=== PATIENT | female | born 1995 | race Caucasian/White ===

== ENCOUNTER 2018-06-11 19:01 | Emergency (ER) | payer MEDICAID, SELFPAY ==
[2018-06-11 19:17] VITALS: BP 113/71; PULSE 128; RESP 18; TEMP 37.3; O2SAT 96
--- NOTE | 2018-06-11 19:54 | W.ED.GENAD ---
Discharge Plan Disposition Patient Disposition: HOME Condition: Improving Discharge Details Chief Complaint: Abd Prob Clinical Impression: Gastroenteritis Primary Care Provider: Armando Hui ED Provider: Scott Vyas Home Meds and New Rx's Prescriptions: New ondansetron HCl [Zofran] 4 mg tablet 4 mg PO QID PRN (Reason: nausea and vomiting) Qty: 10 RF: 0 Continue albuterol sulfate 8.5 GM HFA aerosol inhaler 90 mcg Inhalation qid prn RF: 0 paragard iud RF: 0 acetaminophen [Tylenol] 325 MG tablet 650 mg PO Q4H PRN PRNRF: 0 Discharge Instructions Instructions: Gastroenteritis (ED) Additional Instructions: Home to rest today. Small, frequent sips of fluids to maintain hydration. May use Zofran, as prescribed, as needed for nausea. Return to the emergency department for any acute concerns or if you have persistent fever, the development of abdominal pain, persistent vomiting. Follow-up with regular doctor if not improving in 3 days time Medical Decision Making 22-year-old female presents with hours of nausea and vomiting associated with generalized weakness. She does not have a fever. She is tachycardic. She is otherwise pleasant. Do not feel that there is significant evidence of peritonitis on my exam. Differential diagnosis includes viral gastroenteritis. IV was placed, labs obtained, patient given 2 L of fluid and and antiemetic. Observe revealed borderline low potassium, otherwise reassuring. In the emergency department patient did spike a fever that responded to antipyretics. Her pulse corrected following administration of fluids and she subsequent felt improved and tolerated liquids by mouth. Discussed with her that this does not appear to be developing peritonitis but she will return for the development of abdominal pain. She is to be discharged home with Zofran for as needed use. She will continue oral hydration. She will return for any acute concern Lab Data Lab results reviewed: Yes I reviewed the patient's lab results. Laboratory Tests Range/Units 06/11/18 06/11/18 06/11/18 20:15 20:15 21:56 WBC (4.4-10.8) k/cumm 4.36 L RBC (4.00-5.20) m/cumm 4.38 Hgb (12.0-15.5) g/dL 13.4 Hct (36.0-46.0) % 39.6 MCV (80-95) fL 90.4 MCH (27.0-33.0) pg 30.6 MCHC (32.0-36.0) g/dL 33.8 RDW (11.7-14.6) % 13.1 Plt Count (130-400) x1000/uL 146 MPV (8.0-11.0) fL 10.2 Immature Gran % 0.2 Neutrophils % 77.0 Lymphocytes % 15.1 Monocytes % 7.3 Eosinophils % 0.2 Basophils % 0.2 Absolute Neutrophils (1.2-6.7) k/cumm 3.36 Absolute Lymphocytes (1.2-3.4) k/cumm 0.66 L Absolute Monocytes (0.11-0.7) k/cumm 0.32 Absolute Eosinophils (0.0-0.7) k/cumm 0.01 Absolute Basophils (0.0-0.2) k/cumm 0.01 Sodium (136-145) mmol/L 137 Potassium (3.5-5.1) mmol/L 3.3 L Chloride (98-107) mmol/L 102 Carbon Dioxide (21.0-32.0) mmol/L 26.7 Anion Gap (3-11) mmol/L 8.3 BUN (7-18) mg/dL 12 Creatinine (0.55-1.02) mg/dL 0.74 Estimated GFR/1.73 m2 (mL/min/1.73m2) >= 60.00 Glucose (70-100) mg/dL 118 H Calcium (8.5-10.1) mg/dL 8.1 L Urine Color (Yellow) Yellow Urine Clarity Clear Urine pH (5-8) 6.0 Ur Specific [place] (1.005-1.025) 1.015 Urine Protein (Negative) mg/dL Negative Urine Ketones (Negative) mg/dL Trace H Urine Blood (Negative) Negative Urine Nitrite (Negative) Negative Urine Bilirubin (Negative) Negative Urine Urobilinogen (Up TO 0.2) EU/dL 0.2 Ur Leukocyte Esterase (Negative) Negative Urine Glucose (Negative) mg/dL Negative HPI General Mode of arrival: ambulatory. Date/Time Provider Initiated Documentation: 06/11/18 19:30. Limitations to Documentation: no limitations. Information obtained by: patient. History of Present Illness described as moderate, Quality is described as constant, and is localized to the abdomen. Patient abdomen. Patient started experiencing this hour(s) and it has been intermittent. No relieving factors improve symptom(s), Patient notes no other symptoms.. HPI Narrative: Healthy 22-year-old female is describes the abrupt onset of 4 episodes of fairly prolific bilious, nonbloody emesis that began early this morning. Associated with loose, watery stool. She has not had any tarry or bloody effluent. No fever. No known sick contacts. No travel. She has otherwise been Related Data Home Medications Medication Instructions Recorded Confirmed albuterol sulfate 90 mcg INHALATION qid prn inhaler 08/19/14 06/11/18 acetaminophen [Tylenol] 650 mg PO Q4H PRN PRN tab 12/31/15 06/11/18 Paragard Iud 03/08/17 ondansetron HCl [Zofran] 4 mg PO QID PRN #10 tab 06/11/18 Previous Rx's Medication Instructions Recorded acetaminophen [Tylenol] 650 mg PO Q4H PRN PRN tab 12/31/15 ondansetron HCl [Zofran] 4 mg PO QID PRN #10 tab 06/11/18 Allergies Allergy/AdvReac Type Severity Reaction Status Date / Time cephalexin monohydrate Allergy Severe Skin Rash Unverified 06/11/18 19:24 [From Keflex] Sulfa (Sulfonamide Allergy Severe throat get Unverified 06/11/18 19:24 Antibiotics) itchy Penicillins Allergy Unverified 06/11/18 19:24 omeprazole [From Prilosec] AdvReac Severe hallucinati Unverified 06/11/18 19:24 ons omeprazole magnesium AdvReac Severe hallucinati Unverified 06/11/18 19:24 [From Prilosec] ons General Stated Complaint: Abd Prob CHIO: 3 Review of Systems Review of Systems 8 systems reviewed and otherwise negative PFSH Family History Mother Asthma Father Diabetes Essential hypertension Sister No problems noted. Sister No problems noted. Brother Mental disorder Asthma Brother Mental disorder Asthma Brother Asthma Social History Smoking/Tobacco Use Status: Current every day Surgical History Myringotomy w/ PE (pressure equalizing) tubes Tonsillectomy and adenoidectomy Exam Narrative Exam Narrative: GEN: awake, alert, oriented 3. Pleasant, well groomed, interactive. HEAD: Normocephalic, atraumatic ENT: Mucous membranes dry, oropharynx unremarkable, External ear exam unremarkable EYES: PERRL, EOMI NECK: Full ROM, no HAWA, no menigismus CHEST/RESP: Nontender, clear to auscultation bilateral, no wheeze/rhonchi/rales CARDIOVASCULAR: Regular and tachycardic, no murmur, rub heath. 2+ Rad pulse bilateral ABDOMEN: Soft, nontender, no mass. +Bowel sounds EXT: Full ROM, no edema, no rash Neuro: Grossly normal neurologic exam, conversant, interactive. Psych: Speech fluent, thoughts congruent, affect normal Course Vital Signs Temperature 37.3 C 06/11/18 19:17 Pulse 128 H 06/11/18 19:17 Respiratory Rate 18 06/11/18 19:17 Blood Pressure 113/71 06/11/18 19:17 Pulse Oximetry 96 06/11/18 19:17 Temperature 37.3 C 06/11/18 19:17 Temperature Source Temporal Artery Scan 06/11/18 19:17 Pulse 128 H 06/11/18 19:17 Respiratory Rate 18 06/11/18 19:17 Respiratory Effort 06/11/18 19:17 Blood Pressure 113/71 06/11/18 19:17 Pulse Oximetry 96 06/11/18 19:17 Oxygen Delivery Method Room Air 06/11/18 19:17 Oxygen Flow Rate 0 06/11/18 19:17 Pain Level 6 06/11/18 19:20
[2018-06-11] MEDS: Ondansetron 4 MG/2 ML VIAL IVP (20:23)
[2018-06-11] MEDS: Normal Saline 1,000 ML 1000 ML IV ×2 (20:24→21:09)
[2018-06-11 20:27] LABS: Abs Immature Grans 0.01 k/cumm (0.0-0.09); Absolute Basophil Count 0.01 k/cumm (0.0-0.2); Absolute Eosinophil Count 0.01 k/cumm (0.0-0.7); Absolute Lymphocyte Count 0.66 k/cumm (1.2-3.4); Absolute Monocyte Count 0.32 k/cumm (0.11-0.7); Absolute Neutrophil Count 3.36 k/cumm (1.2-6.7); Basophils % 0.2; Eosinophils % 0.2; HCT 39.6 % (36.0-46.0); HGB 13.4 g/dL (12.0-15.5); Immature Grans % 0.2; Lymphocytes % 15.1; Mean Corp. HGB Concentration 33.8 g/dL (32.0-36.0); Mean Corpuscular Hemoglobin 30.6 pg (27.0-33.0); Mean Corpuscular Volume 90.4 fL (80-95); Mean Platelet Volume 10.2 fL (8.0-11.0); Monocytes % 7.3; Platelet Count 146 x1000/uL (130-400); RBC 4.38 m/cumm (4.00-5.20); RBC Distribution Width 13.1 % (11.7-14.6); White Blood Cell Count 4.36 k/cumm (4.4-10.8)
[2018-06-11 20:36] LABS: Anion Gap 8.3 mmol/L (3-11); BUN 12 mg/dL (7-18); CO2 26.7 mmol/L (21.0-32.0); CREATININE 0.74 mg/dL (0.55-1.02); Calcium 8.1 mg/dL (8.5-10.1); Chloride 102 mmol/L (98-107); Glucose 118 mg/dL (70-100); Potassium 3.3 mmol/L (3.5-5.1); Sodium 137 mmol/L (136-145)
[2018-06-11 21:56] VITALS: TEMP 38.5
[2018-06-11] MEDS: Acetaminophen 500 MG TAB 1000 MG PO (21:56)
[2018-06-11 22:07] LABS: Bilirubin Negative (Negative); Blood Negative (Negative); Clarity Clear; Glucose Negative (Negative); Ketones Trace mg/dL (Negative); Leukocyte Esterase Negative (Negative); Nitrite Negative (Negative); Specific Gravity 1.015 (1.005-1.025); Urobilinogen 0.2 EU/dL (Up TO 0.2)
[2018-06-11 22:47] VITALS: TEMP 39.1
[2018-06-11] MEDS: Ondansetron O.D.T. 4 MG TABEF 12 MG PO (22:48)
[2018-06-11 22:55] VITALS: BP 108/62; PULSE 104; RESP 16; TEMP 39.1; O2SAT 97
== END 2018-06-11 22:55 | disposition home or self-care (01) ==
PROVIDERS: Nurse Practitioner Family; Emergency Provider Emergency Medicine; PCP Family Medicine
DX: K52.9 Noninfective gastroenteritis and colitis, unspecified (principal); R50.9 Fever, unspecified
CPT/HCPCS: 36415; 80048; 81025; 96361; 96374; 99284; 81003; 85025; J2405

== ENCOUNTER 2018-09-12 11:17 | Outpatient (REF) | payer MEDICAID, SELFPAY ==
[2018-09-15 13:57] LABS: Chlamydia Result Negative; GC Result Negative; Specimen Description CERVIX
== END 2018-09-12 11:37 ==
LOC: LBN 11:17
PROVIDERS: PCP Family Medicine; Visit Provider Nurse Practitioner Family
DX: Z11.3 Encounter for screening for infections with a predominantly sexual mode of transmission (principal)
CPT/HCPCS: 87491; 87591

== ENCOUNTER 2018-11-14 15:36 | Outpatient (REF) | payer MEDICAID, SELFPAY ==
--- NOTE | 2018-11-14 14:45 | PAPFT_PTH ---
PATIENT: Raquel Garland LOC: [facility] U#:[id number] AGE/SX: 23/F ROOM: RE11/14/[address]: ISIAH Taylor : 1995 BED: DIS: 11/14/2018 SPEC #: [id number] RECD: 11/14/18 16:52 STATUS: SOPHIE RICHARDSON #: [id number] NEDA: 11/14/18 14:[address]: Shaila Kramer DEPT: [facility] Cytology RECD BY: Michell Chopra ENTERED: 11/14/18 16:52 SP TYPE: PAPFT OTHR DR: Iraida Denson Tissues: 1 - CX/ENDOCX FOR PAP SMEARS Procedures: PAP THIN PREP/[facility]VM Screening Comments: [id number]
== END 2018-11-14 15:56 ==
LOC: LBN 15:36
PROVIDERS: PCP Nurse Practitioner; Visit Provider Nurse Practitioner Family
DX: Z12.4 Encounter for screening for malignant neoplasm of cervix (principal)
CPT/HCPCS: 88142

== ENCOUNTER 2018-12-18 00:28 | Outpatient (CLI) | payer MEDICAID, SELFPAY ==
--- NOTE | 2018-12-18 09:30 | DI.US_ITS ---
SYMPTOM/DIAGNOSIS: TENDER LT BREAST MASS, N63.20, SWELLING, REDNESS LEFT BREAST ULTRASOUND: Ultrasound was performed due to recent history of painful, erythematous breast. The patient has been treated with antibiotics. No mass identified. No abscess identified. The patient reports no palpable abnormality. CONCLUSION: Negative breast ultrasound.
== END 2018-12-18 00:48 ==
PROVIDERS: PCP Nurse Practitioner; Visit Provider Nurse Practitioner Family
DX: N63.20 Unspecified lump in the left breast, unspecified quadrant (principal); N64.4 Mastodynia; Z79.2 Long term (current) use of antibiotics
CPT/HCPCS: 76642

== ENCOUNTER 2019-01-30 10:58 | Outpatient (REF) | payer MEDICAID, SELFPAY ==
[2019-01-30 13:17] LABS: HCT 39.4 % (36.0-46.0); HGB 13.1 g/dL (12.0-15.5); Mean Corp. HGB Concentration 33.2 g/dL (32.0-36.0); Mean Corpuscular Volume 93.1 fL (80-95); Mean Platelet Volume 10.9 fL (8.0-11.0); Platelet Count 222 x1000/uL (130-400); RBC 4.23 m/cumm (4.00-5.20); RBC Distribution Width 12.6 % (11.7-14.6); White Blood Cell Count 7.29 k/cumm (4.4-10.8)
[2019-01-30 13:41] LABS: ALT 20 U/L (12-78); AST 13 U/L (15-37); Albumin 3.7 g/dL (3.4-5.0); Alkaline Phosphatase 45 U/L (46-116); Anion Gap 10.1 mmol/L (3-11); BUN 10 mg/dL (7-18); Bilirubin, Total 0.3 mg/dL (0.2-1.0); CO2 24.9 mmol/L (21.0-32.0); CREATININE 0.66 mg/dL (0.55-1.02); Calcium 9.5 mg/dL (8.5-10.1); Chloride 103 mmol/L (98-107); Glucose 89 mg/dL (70-100); Sodium 138 mmol/L (136-145); TSH (W/Ref FT4) 0.62 uIU/mL (0.358-3.74); Total Protein 7.2 g/dL (6.4-8.2)
== END 2019-01-30 11:18 ==
LOC: NCHCN 10:58
PROVIDERS: PCP Nurse Practitioner; Visit Provider Family Medicine
DX: F41.9 Anxiety disorder, unspecified (principal); R00.2 Palpitations
CPT/HCPCS: 80053; 85027; 84443

== ENCOUNTER 2019-02-20 07:16 | Outpatient (CLI) | payer MEDICAID, SELFPAY ==
--- NOTE | 2019-02-20 16:00 | DI.US_ITS ---
SYMPTOMS/DIAGNOSIS: UMBILICAL MASS, R19.05 ULTRASOUND OF THE ANTERIOR ABDOMINAL WALL: The umbical region was scanned. No cyst, mass or hernia is identified.
== END 2019-02-20 07:36 ==
PROVIDERS: PCP Nurse Practitioner; Visit Provider Nurse Practitioner Family
DX: R19.05 Periumbilic swelling, mass or lump (principal)
CPT/HCPCS: 76705

== ENCOUNTER 2019-06-19 10:53 | Outpatient (REF) | payer MEDICAID, SELFPAY ==
[2019-06-22 09:51] LABS: ALT 14 U/L (14-59); AST 13 U/L (15-37); Albumin 4.2 g/dL (3.4-5.0); Alkaline Phosphatase 53 U/L (46-116); BUN 13 mg/dL (7-18); Bilirubin, Total 0.4 mg/dL (0.2-1.0); CREATININE 0.72 mg/dL (0.55-1.02); Calcium 9.8 mg/dL (8.5-10.1); Chloride 102 mmol/L (98-107); Glucose 81 mg/dL (70-100); Potassium 4.6 mmol/L (3.5-5.1); Sodium 139 mmol/L (136-145); TSH (W/Ref FT4) 0.48 uIU/mL (0.36-3.74); Total Protein 7.6 g/dL (6.4-8.2)
[2019-06-24 14:44] LABS: IgA 102 mg/dL (85-499); Interpretation SEE COMMENTS; Tissue Transglutaminase IgA <1.2 U/mL (<4.0)
== END 2019-06-19 11:13 ==
LOC: NCHCN 10:53
PROVIDERS: PCP Nurse Practitioner; Visit Provider Family Medicine
DX: R19.7 Diarrhea, unspecified (principal)
CPT/HCPCS: 80053; 82784; 83516; 85027; 84443

== ENCOUNTER 2019-06-19 12:11 | Outpatient (CLI) | payer MEDICAID, SELFPAY ==
--- NOTE | 2019-06-19 10:26 | DI.RAD_ITS ---
EXAM: XR ABDOMEN FLAT PLATE INDICATION: CHRONIC DIARRHEA, R19.7. COMPARISON: No exams were available for comparison TECHNIQUE: 2D digital imaging was performed. FINDINGS: The lung bases are clear. Bowel gas pattern is normal appearance. There is a normal quantity of st ool. There is no colonic or small bowel dilatation. No organomegaly or urinary tract calculi are se en. No bony abnormalities are identified. IMPRESSION: Negative abdomen. No evidence of constipation.
== END 2019-06-19 12:31 ==
PROVIDERS: PCP Nurse Practitioner; Visit Provider Family Medicine
DX: R19.7 Diarrhea, unspecified (principal)
CPT/HCPCS: 74018

== ENCOUNTER 2019-06-24 19:02 | Outpatient (REF) | payer MEDICAID, SELFPAY ==
[2019-06-26 10:46] LABS: Campylobacter PCR SEE COMMENTS; Salmonella PCR SEE COMMENTS; Shiga Toxin PCR SEE COMMENTS; Shigella/Enteroinvasive Ecoli SEE COMMENTS
== END 2019-06-24 19:22 ==
LOC: NCHCN 19:02
PROVIDERS: PCP Nurse Practitioner; Visit Provider Family Medicine
DX: R19.7 Diarrhea, unspecified (principal)
CPT/HCPCS: 87329; 87505; 83630; 87324

== ENCOUNTER 2019-09-25 16:29 | Outpatient (CLI) | payer MEDICAID, SELFPAY ==
[2019-09-25 17:21] LABS: Abs Immature Grans 0.01 k/cumm (0.0-0.09); Absolute Basophil Count 0.02 k/cumm (0.0-0.2); Absolute Lymphocyte Count 2.15 k/cumm (1.2-3.4); Absolute Neutrophil Count 3.24 k/cumm (1.2-6.7); Basophils % 0.3; Eosinophils % 3.3; HCT 35.9 % (36.0-46.0); HGB 12.3 g/dL (12.0-15.5); Immature Grans % 0.2 %; Lymphocytes % 35.1; Mean Corp. HGB Concentration 34.3 g/dL (32.0-36.0); Mean Corpuscular Hemoglobin 30.1 pg (27.0-33.0); Mean Platelet Volume 9.6 fL (8.0-11.0); Monocytes % 8.2; Neutrophils % 52.9; Platelet Count 229 x1000/uL (130-400); RBC 4.08 m/cumm (4.00-5.20); RBC Distribution Width 11.9 % (11.7-14.6); White Blood Cell Count 6.12 k/cumm (4.4-10.8)
[2019-09-25 18:09] LABS: TSH (W/Ref FT4) 0.51 uIU/mL (0.36-3.74)
[2019-09-28 09:56] LABS: Hepatitis B Surface Ag Negative (Negative)
[2019-09-28 10:49] LABS: HIV-1/2 Ag & Ab Screen Negative (Negative)
[2019-09-28 11:32] LABS: Hepatitis C Ab w Rflx HCV PCR Negative (Negative)
[2019-09-28 13:55] LABS: Rubella IgG Ab (UVM) Positive (See Note); Varicella IgG Antibody Positive (See Note)
[2019-09-29 15:05] LABS: Syphilis Total Ab w/Reflex Nonreactive (Nonreactive)
== END 2019-09-25 16:49 ==
PROVIDERS: PCP Nurse Practitioner; Visit Provider Advanced Practice Midwife
DX: Z34.91 Encounter for supervision of normal pregnancy, unspecified, first trimester (principal); Z11.4 Encounter for screening for human immunodeficiency virus [HIV]; Z11.59 Encounter for screening for other viral diseases; Z01.84 Encounter for antibody response examination
CPT/HCPCS: 36415; 86787; 86803; 86850; 86900; 86901; 87340; 87389; 84443; 85025; 86762; 86780

== ENCOUNTER 2019-09-25 16:49 | Outpatient (REF) | payer MEDICAID, SELFPAY ==
[2019-09-25 18:08] LABS: *AMPHETAMINES SCREEN URINE Negative (Negative); *BARBITURATES SCREEN URINE Negative (Negative); *BENZODIAZEPINES SCREEN URINE Negative (Negative); Cannabinoids THC Negative (Negative); Cocaine Screen,Urine Negative (Negative); METHADONE URINE SCREEN Negative (Negative); OPIATES URINE SCREEN Negative (Negative)
[2019-09-25 18:09] LABS: Tricyclic Antidepressants Negative (Negative)
[2019-09-28 15:03] LABS: Chlamydia Result Negative (Negative); GC Result Negative (Negative)
[2019-10-02 06:59] LABS: Buprenorphine Negative; Norbuprenorphine Negative
== END 2019-09-25 17:09 ==
LOC: LBN 16:49
PROVIDERS: PCP Nurse Practitioner; Visit Provider Advanced Practice Midwife
DX: Z34.91 Encounter for supervision of normal pregnancy, unspecified, first trimester (principal); Z11.3 Encounter for screening for infections with a predominantly sexual mode of transmission
CPT/HCPCS: 80307; 87491; 87591; 87086

== ENCOUNTER 2019-09-28 11:30 | Outpatient (CLI) | payer MEDICAID, SELFPAY ==
[2019-09-28 12:22] LABS: Kit/Specimen SENT
== END 2019-09-28 11:50 ==
PROVIDERS: PCP Nurse Practitioner; Visit Provider Advanced Practice Midwife
DX: Z34.01 Encounter for supervision of normal first pregnancy, first trimester (principal); Z36.89 Encounter for other specified antenatal screening
CPT/HCPCS: 36415

== ENCOUNTER 2019-11-13 02:11 | Outpatient (CLI) | payer MEDICAID, SELFPAY ==
--- NOTE | 2019-11-13 07:00 | DI.US_ITS ---
EXAM: US OB 2-3 TRIMESTER CLINICAL HISTORY: routine pnc,z34.90. TECHNIQUE: Transabdominal obstetrical ultrasound performed. COMPARISON: No exams were available for comparison FINDINGS: There is a single living intrauterine gestation. The placenta is posterior without evidence of previa. Fetus was in various positions during the examination. No abnormalities are identified. heart rate is 147 beats per minute. Estimated age is 18 weeks. IMPRESSION: 1. Single live intrauterine gestation as above. 2. Normal anatomic survey. DATA REPOSITORY:
== END 2019-11-13 02:31 ==
PROVIDERS: PCP Family Medicine; Visit Provider Advanced Practice Midwife
DX: Z34.92 Encounter for supervision of normal pregnancy, unspecified, second trimester (principal); Z3A.18 18 weeks gestation of pregnancy
CPT/HCPCS: 76805

== ENCOUNTER 2020-01-29 09:12 | Outpatient (CLI) | payer MEDICAID, SELFPAY ==
[2020-01-29 09:44] LABS: Glucose,1 Hr (Glucola) 128 mg/dL (80-140)
== END 2020-01-29 09:32 ==
PROVIDERS: Advanced Practice Midwife; PCP Family Medicine; Visit Provider Advanced Practice Midwife
DX: Z34.93 Encounter for supervision of normal pregnancy, unspecified, third trimester (principal)
CPT/HCPCS: 82950

== ENCOUNTER 2020-02-02 04:39 | Outpatient (CLI) | payer MEDICAID, SELFPAY ==
[2020-02-02 10:13] LABS: HCT 35.4 % (36.0-46.0); HGB 11.9 g/dL (12.0-15.5); Mean Corp. HGB Concentration 33.6 g/dL (32.0-36.0); Mean Corpuscular Hemoglobin 30.4 pg (27.0-33.0); Mean Corpuscular Volume 90.3 fL (80-95); Mean Platelet Volume 8.8 fL (8.0-11.0); Platelet Count 219 x1000/uL (130-400); RBC 3.92 m/cumm (4.00-5.20); RBC Distribution Width 13.2 % (11.7-14.6); White Blood Cell Count 6.32 k/cumm (4.4-10.8)
== END 2020-02-02 04:59 ==
PROVIDERS: PCP Family Medicine; Visit Provider Advanced Practice Midwife
DX: Z34.93 Encounter for supervision of normal pregnancy, unspecified, third trimester (principal)
CPT/HCPCS: 36415; 85027

== ENCOUNTER 2020-03-24 11:47 | Outpatient (REF) | payer MEDICAID, SELFPAY ==
[2020-03-24 13:02] LABS: *AMPHETAMINES SCREEN URINE Negative (Negative); *BARBITURATES SCREEN URINE Negative (Negative); *BENZODIAZEPINES SCREEN URINE Negative (Negative); Cannabinoids THC Negative (Negative); Cocaine Screen,Urine Negative (Negative); METHADONE URINE SCREEN Negative (Negative); OPIATES URINE SCREEN Negative (Negative)
[2020-03-24 13:05] LABS: Tricyclic Antidepressants Negative (Negative)
[2020-03-30 10:36] LABS: Buprenorphine Negative
== END 2020-03-24 12:07 ==
LOC: LBN 11:47
PROVIDERS: PCP Family Medicine; Visit Provider Advanced Practice Midwife
DX: Z34.90 Encounter for supervision of normal pregnancy, unspecified, unspecified trimester (principal)
CPT/HCPCS: 80307; 87081

== ENCOUNTER 2020-04-18 17:38 | Inpatient (IN) | payer MEDICAID, SELFPAY ==
[2020-04-18] MEDS: Normal Saline Flush 10 ML SYR IVP (08:02)
[2020-04-18 19:54] LABS: Abs Immature Grans 0.04 10^3/uL (0.0-0.06); Absolute Basophil Count 0.02 10^3/uL (0.0-0.2); Absolute Eosinophil Count 0.09 10^3/uL (0.0-0.7); Absolute Lymphocyte Count 2.09 10^3/uL (1.2-3.4); Absolute Monocyte Count 0.87 10^3/uL (0.1-0.8); Absolute Neutrophil Count 5.69 10^3/uL (1.2-6.7); Basophils % 0.2; HGB 12.3 g/dL (11.2-15.7); Immature Grans % 0.5; Lymphocytes % 23.8; MCH 29.9 pg (27.0-33.0); MCHC 33.2 % (32.0-36.0); MPV 9.6 fL (8.0-11.0); Monocytes % 9.9; Neutrophils % 64.6; Nucleated RBC 0 %; Platelet Count 189 10^3/uL (130-400); RBC 4.11 10^6/uL (3.93-5.22); RDW 12.9 % (11.7-14.6); RDW-SD 42.2 fL
[2020-04-18] MEDS: Lactated Ringers 1,000 ML 125 ML IV (20:00)
[2020-04-18] MEDS: CLINDAMYCIN 900 MG/50 ML BAG 50 MG IVPB (20:40)
[2020-04-18] MEDS: Oxytocin 10 UNITS/ML VIAL 20 UNITS IV (21:50)
[2020-04-19] MEDS: Acetaminophen 325 MG TAB 650 MG PO ×3 (07:36→20:37)
[2020-04-19 07:42] LABS: HCT 34.7 % (36.0-46.0); HGB 11.6 g/dL (11.2-15.7); MCH 29.9 pg (27.0-33.0); MCHC 33.4 % (32.0-36.0); MCV 89.4 fL (80-95); MPV 9.5 fL (8.0-11.0); Platelet Count 168 10^3/uL (130-400); RBC 3.88 10^6/uL (3.93-5.22); RDW-SD 42.3 fL; WBC 12.29 10^3/uL (4.4-10.8)
[2020-04-19] MEDS: Ibuprofen 600 MG TAB PO ×2 (11:51→20:36)
[2020-04-19 14:25] LABS: COVID-19 RT-PCR UVMMC Result Negative (Negative)
== END 2020-04-20 12:45 | disposition home or self-care (01) | DRG 807 ==
PROVIDERS: Admitting Provider Advanced Practice Midwife; PCP Family Medicine; Visit Provider Advanced Practice Midwife
DX: O48.0 Post-term pregnancy (principal); Z37.0 Single live birth; O69.1XX0 Labor and delivery complicated by cord around neck, with compression, not applicable or unspecified; O99.824 Streptococcus B carrier state complicating childbirth; Z3A.40 40 weeks gestation of pregnancy; O99.344 Other mental disorders complicating childbirth; F32.9 Major depressive disorder, single episode, unspecified; Z88.0 Allergy status to penicillin; Z67.10 Type A blood, Rh positive
CPT/HCPCS: 36415; 85027; 86850; 86900; 86901; U0003; 59025; 85025; G0378; J2590

== ENCOUNTER 2020-05-31 10:48 | Emergency (ER) | payer MEDICAID, SELFPAY ==
[2020-05-31 10:54] VITALS: BP 103/70; PULSE 80; RESP 16; TEMP 36.3; O2SAT 96
--- NOTE | 2020-05-31 11:30 | ED.GENADUL_ITS ---
Discharge Plan Disposition Patient Disposition: HOME Condition: Stable Discharge Details Clinical Impression: Mastitis Primary Care Provider: Belinda Diaz ED Provider: Ankit Card Home Meds and New Rx's Prescriptions: New clindamycin HCl 300 mg capsule 300 mg PO Q6H 10 Days Qty: 40 RF: 0 Continued clindamycin phosphate 1 % solution 1 applic TP DAILY Qty: 60 RF: 2 albuterol sulfate 8.5 GM HFA aerosol inhaler 90 mcg Inhalation qid prn RF: 0 acetaminophen [Tylenol] 325 MG tablet 650 mg PO Q4H PRN PRNRF: 0 Discharge Instructions Instructions: Mastitis (ED) Additional Instructions: Clindamycin as directed. Warm compresses every 2 hours for 20 minutes. Please watch for new or worsening symptoms and return to the ER for any concerns. I do recommend that you reach out to your [employer]IOR [employer]EL[employer] team later today or tomorrow for prompt outpatient reevaluation. Medical Decision Making 24-year-old female who is 6 weeks , full-term, uncomplicated vaginal . She presents today with a day history of chills, fever, headache intermittent for the past 8 days now with bilateral breast discomfort worse in the right side. Currently she is afebrile, denies any headache. Blood pressure 103/70. Pulse in the 80s. After a thorough HPI and examination there is no other obvious source of infection except for what appears to be mastitis. She has bilateral breast discomfort but the right breast in the lower-lateral aspect does have some induration with out any obvious fluctuance or pointing abscess. Abdomen is soft, nontender. Denies any vaginal bleeding or discharge. No back pain. Patient did have mastitis with her previous child and because of her allergies was given clindamycin. Discussed options at this time such as obtaining laboratory values, urinalysis, chest x-ray, attempting to find another source of infection or treating for most likely source. Patient believes that giving a prescription for clindamycin, continue warm compresses, is reasonable and she would prefer that option. She is not sure me that if her symptoms are to worsen or evolve she will come back to the ER. Patient is comfortable continuing to breast-feed. Patient without any additional questions or concerns and is comfortable with discharge at this time. I did recommend that she contact her [employer]IOR [employer]UPAL DEVELOPER or primary care provider later today or tomorrow for prompt outpatient reevaluation. Medical Records Medical records reviewed: Yes I reviewed the patient's medical records. HPI General Mode of arrival: ambulatory . Date/Time Provider Initiated Documentation: 05/31/20 11:04 . Limitations to Documentation: no limitations . Information obtained by: patient . HPI Narrative: This is a 24-year-old female with history of anxiety, depression, 6 weeks presenting to the ER for concern of mastitis. She reports that last week she was feeling tired, chills, fever as high as 102. She took Tylenol and fever has resolved. She reports bilateral breast pain, right is worse. She feels an area of firmness to her right breast as well. She did have a headache but that has resolved. She denies any other recent illness, sick contacts, travel. She denies current headache, neck pain, chest pain, shortness of breath, cough, abdominal pain, nausea, vomiting, dysuria, diarrhea, vaginal bleeding or discharge. She denies rash or pain in her joints. She states that this feels similar but not exactly to her previous mastitis which she had 3 times during her first . She is comfortable continuing to breast-feed, reports that her milk quality and production is unchanged. She is allergic to Keflex, sulfa drugs, penicillins, and because of this they had her on clindamycin for her previous mastitis which worked well. Related Data Home Medications Medication Instructions Recorded Confirmed albuterol sulfate 90 mcg INHALATION qid prn inhaler 08/19/14 05/31/20 acetaminophen [Tylenol] 650 mg PO Q4H PRN PRN tab 12/31/15 05/31/20 clindamycin phosphate 1 % topical 1 applic TP DAILY #60 ml 11/13/19 05/31/20 solution clindamycin HCl 300 mg PO Q6H 10 Days #40 cap 05/31/20 Previous Rx's Medication Instructions Recorded acetaminophen [Tylenol] 650 mg PO Q4H PRN PRN tab 12/31/15 clindamycin phosphate 1 % topical 1 applic TP DAILY #60 ml 11/13/19 solution clindamycin HCl 300 mg PO Q6H 10 Days #40 cap 05/31/20 Allergies Allergy/AdvReac Type Severity Reaction Status Date / Time cephalexin monohydrate Allergy Severe Skin Rash Verified 05/31/20 10:59 [From Keflex] Sulfa (Sulfonamide Allergy Severe throat get Verified 05/31/20 10:59 Antibiotics) itchy Penicillins Allergy Verified 05/31/20 10:59 omeprazole [From Prilosec] AdvReac Severe hallucinati Verified 05/31/20 10:59 ons omeprazole magnesium AdvReac Severe hallucinati Verified 05/31/20 10:59 [From Prilosec] ons General Stated Complaint: Cellulitis CHIO: 3 Review of Systems Constitutional Constitutional: Denies fatigue, Reports fever(s) and Reports headache(s) Eyes Eyes: Denies change in vision ENT Ears, Nose, Mouth, and Throat: Reports headache(s) and Denies sore throat Cardiovascular Cardiovascular: Denies chest pain and Denies dyspnea Respiratory Respiratory: Denies cough and Denies dyspnea Gastrointestinal Gastrointestinal: Denies abdominal pain, Denies nausea and Denies vomiting Genitourinary Genitourinary: Denies abnormal vaginal bleeding, Denies dysuria and Denies vaginal discharge Musculoskeletal Musculoskeletal: Denies back pain, Denies numbness and Denies tingling Integumentary/Breasts Skin/Breast: Denies rash Neurologic Neurologic: Reports headache(s), Denies numbness and Denies tingling Endocrine Endocrine: Denies fatigue [facility] Medical History Contraception Contraceptive, surveillance, intrauterine device (03/29/17) Multiple allergies a. sulfa b. cephalxin monohydrate (from Keflex) c. PCN d. Cimetidine E. Omeprazole from prilosec f. Omeprazole magnesium Surgical History Myringotomy w/ PE (pressure equalizing) tubes Tonsillectomy and adenoidectomy Family History Mother Asthma Father Diabetes Essential hypertension Sister No problems noted. Sister No problems noted. Brother Mental disorder Asthma Brother Mental disorder Asthma Brother Asthma Social History Smoking/Tobacco Use Status: Former Tobacco Use Alcohol Intake: never Drug use: Never Substance use type: does not use Do you feel safe in your relationship?: Yes Female Reproductive History Menstrual control method: pills History History 3 Para 2 Hx # Term Pregnancies 2 Multiple births 0 Hx # Pregnancies 0 Ectopic pregnancies 0 AB induced 0 Hx Number of Living Children 2 AB spontaneous 0 Past Pregnancies Del. Date GA/Weeks # Outcome Route Wgt Sex Labor Lgth Anesthes ia Location Prov Complic 12/29/15 40 No Successful vaginal 3912.234 g Male 7 hrs d. michelleude cnm 04/18/20 40 No Successful vaginal 4082.331 g Female 5 J. Melo Delivery Date: 12/29/15 w/o c/o. KRISTYNGEORGESWOJCIECH Delivery Date: 04/18/20 SROM as pt was getting up to shower--she immediately felt urges to bear down. Pt turned to LLP, shortly over intact perineum. Tight nuchal cord x2 too snug to reduce overhead--infant somersaulted around cord with shoulders coming easily. Jyoti Pope Exam Const General: cooperative, healthy appearing, comfortable and no acute distress Orientation: alert, awake and oriented x3 HENMT Head: normal to inspection, normocephalic and atraumatic Face and sinus: normal facial exam Mouth: moist mucous membranes Eyes Conjunctivae: conjunctivae normal Sclera: sclerae normal Neck Neck: normal visual inspection, full ROM, no lymphadenopathy, no meningeal signs, trachea midline, supple and nontender Chest Breast inspection: normal inspection of the axillae Breast palpation: no axillary lymphadenopathy (On the left), abnormal palpation of the axilla (Right sided tenderness), abnormal palpation of the breast left upper outer tenderness; no inuduration, right lower outer tenderness and induration (No fluctuance) and axillary lymphadenopathy (Single node right side) Other: Breast and chest exam performed with female RN in room Resp Effort & Inspection: normal respiratory effort and able to speak in complete sentences Auscultation: clear to auscultation bilaterally Cardio Rate: regular rate Rhythm: regular rhythm GI Inspection: normal to inspection Palpation: soft, not firm, no guarding and nontender Auscultation: normal bowel sounds Back/Spine/Pelvis Back: No back tenderness Skin General skin exam: no rashes or lesions noted Neuro General: patient alert, patient awake, patient oriented x3, moves all extremities and no focal motor deficits Cognition: normal cognition Speech: speech normal Gait: normal gait Motor: muscle tone normal throughout Sensory Exam: no sensory deficits noted Extrem General: normal to inspection and full ROM Psych Appearance: grossly normal Mental Status: mental status grossly normal Course Vital Signs Vital signs: Vital Signs Temperature 36.3 C L 05/31/20 10:54 Pulse 80 05/31/20 10:54 Respiratory Rate 16 05/31/20 10:54 Blood Pressure 103/70 05/31/20 10:54 Pulse Oximetry 96 05/31/20 10:54 Temperature 36.3 C L 05/31/20 10:54 Temperature Source Skin 05/31/20 10:54 Pulse 80 05/31/20 10:54 Respiratory Rate 16 05/31/20 10:54 Respiratory Effort Non-Labored 05/31/20 10:54 Blood Pressure 103/70 05/31/20 10:54 Blood Pressure Position Sitting 05/31/20 10:54 Pulse Oximetry 96 05/31/20 10:54 Oxygen Delivery Method Room Air 05/31/20 10:54 Oxygen Flow Rate 0 05/31/20 10:54 Pain Level 5 05/31/20 10:54
== END 2020-05-31 11:45 | disposition home or self-care (01) ==
PROVIDERS: Emergency Provider Physician Assistant; PCP Family Medicine
DX: O91.22 Nonpurulent mastitis associated with the puerperium (principal); R50.9 Fever, unspecified
CPT/HCPCS: 99283

== ENCOUNTER 2020-06-30 12:14 | Outpatient (REF) | payer MEDICAID, SELFPAY ==
[2020-06-30 18:37] LABS: Abs Immature Grans 0.01 10^3/uL (0.0-0.06); Absolute Basophil Count 0.05 10^3/uL (0.0-0.2); Absolute Eosinophil Count 0.57 10^3/uL (0.0-0.7); Absolute Lymphocyte Count 2.48 10^3/uL (1.2-3.4); Absolute Neutrophil Count 2.65 10^3/uL (1.2-6.7); Basophils % 0.8; Eosinophils % 9.1; HCT 39.4 % (36.0-46.0); HGB 12.9 g/dL (11.2-15.7); Immature Grans % 0.2; Lymphocytes % 39.6; MCHC 32.7 % (32.0-36.0); MCV 88.5 fL (80-95); MPV 9.9 fL (8.0-11.0); Neutrophils % 42.3; Nucleated RBC 0 %; Platelet Count 297 10^3/uL (130-400); RBC 4.45 10^6/uL (3.93-5.22); RDW 12.5 % (11.7-14.6); RDW-SD 40.8 fL; WBC 6.26 10^3/uL (4.4-10.8)
[2020-06-30 18:46] LABS: Bilirubin Negative (Negative); Blood Negative (Negative); Clarity Sl Cloudy (Clear); Glucose Negative (Negative); Ketones Negative (Negative); Leukocyte Esterase Trace (Negative); Nitrite Negative (Negative); Specific Gravity >= 1.030 (1.005-1.025); Urobilinogen 0.2 EU/dL (Up TO 0.2); pH 5.5 (5-8)
[2020-06-30 19:09] LABS: Bacteria Few HPF (Negative); C & S Indicated? No/Sq. Contamination; Casts Negative LPF (Negative); Crystals Negative HPF (Negative); Epithelial Cells Moderate HPF (Negative); Mucus Trace (Negative); Other Cells Few Transitional (Negative); RBC Negative HPF (0-2)
[2020-06-30 19:19] LABS: ALT 26 U/L (14-59); AST 13 U/L (15-37); Albumin 4.1 g/dL (3.4-5.0); Alkaline Phosphatase 94 U/L (46-116); Anion Gap 8.2 mmol/L (3-11); BUN 11 mg/dL (7-18); Bilirubin, Total 0.4 mg/dL (0.2-1.0); C-Reactive Protein 0.28 mg/dL (0.0-0.3); CO2 25.8 mmol/L (21.0-32.0); CREATININE 0.72 mg/dL (0.55-1.02); Calcium 9.5 mg/dL (8.5-10.1); Chloride 105 mmol/L (98-107); Glucose 85 mg/dL (74-106); Potassium 4.4 mmol/L (3.5-5.1); Sodium 139 mmol/L (136-145); TSH (W/Ref FT4) 0.52 uIU/mL (0.36-3.74); Total Protein 7.4 g/dL (6.4-8.2)
[2020-06-30 19:51] LABS: ESR 13 mm/hr (0-20)
== END 2020-06-30 12:34 ==
LOC: NCHCN 12:14
PROVIDERS: PCP Family Medicine; Visit Provider Family Medicine
DX: R53.83 Other fatigue (principal); R53.1 Weakness; R50.9 Fever, unspecified
CPT/HCPCS: 80053; 85652; 81003; 81015; 84443; 85025; 86140

== ENCOUNTER 2021-01-05 15:10 | Outpatient (CLI) | payer MEDICAID, SELFPAY ==
--- NOTE | 2021-01-05 | DI.CT_ITS ---
Exam(s) CT ABDOMEN PELVIS W EXAM: CT ABDOMEN PELVIS W INDICATION: LLQ ABD PAIN R10.32, NEG UPT IN OFFICE, PAIN HIGHER THAN LT OVARY. COMPARISON: CT ABD PELVIS WO CONTRAST from 04/01/2015 TECHNIQUE: FINDINGS: CT examination of the abdomen and pelvis was performed with a bolus infusion of 100 cc of Omnipaque 3 50. Images obtained through the lung bases are unremarkable. The liver is unremarkable in appearance. Gallbladder and bile ducts are CT normal. Pancreas appears normal. Spleen is unremarkable in appearance. Adrenals appear normal. The kidneys are unremarkable with no evidence of hydronephrosis, nephrolithiasis, or renal mass.. Ur inary bladder unremarkable. Abdominal aorta is of normal diameter and no major vascular abnormality is seen. No abdominal wall hernia. No abdominal or pelvic adenopathy. [employer] structures appear intact. Appendix is normal. There is area increased fat attenuation seen adjacent to distal descending colon on the anti mesenter ic border of the colon without associated wall thickening. There is a central lucency in this area o f increased attenuation. Findings as described are suggestive epiploic appendagitis. There is no ev idence of diverticulitis or obstruction. IMPRESSION: Findings as described are suggestive of epiploic appendagitis. No other significant intra-abdominal findings. Results of this exam have been verbally communicated with provider. RADIATION DOSE DELIVERED: 856.22mGy.cm Total DLP 856.22mGy.cm Total DLP RADIATION OPTIMIZATION: All CT scans at this facility use at least one of these dose optimization te chniques: automated exposure control; mA and/or kV adjustment per patient size (includes targeted exa ms where dose is matched to clinical indication); or iterative reconstruction.
[2021-01-05] MEDS: Breeza Beverage 473 ML BTL PO ×2 (11:11→11:12)
[2021-01-05] MEDS: Omnipaque 350 MG/ML 50 ML BTL PO (11:12)
[2021-01-05] MEDS: Normal Saline - Diluent 50 ML VIAL IV (12:37)
[2021-01-05] MEDS: Omnipaque 350 MG/ML 100 ML BTL IJ (12:37)
[2021-01-05] MEDS: Normal Saline Flush 10 ML SYR IVP (12:38)
== END 2021-01-05 15:30 ==
PROVIDERS: PCP Family Medicine; Visit Provider Family Medicine
DX: R10.32 Left lower quadrant pain (principal); K63.89 Other specified diseases of intestine
CPT/HCPCS: 74177; J3490; Q9967

== ENCOUNTER 2021-10-12 12:29 | Outpatient (REF) | payer MEDICAID, SELFPAY ==
--- NOTE | 2021-10-12 11:00 | PAPFT_PTH ---
PATIENT: Raquel Garland LOC: [facility] U#:[id number] AGE/SX: 26/F ROOM: RE10/12/[address]: ISIAH Taylor : 1995 BED: DIS: 10/12/2021 SPEC #: [id number] RECD: 10/12/21 13:00 STATUS: SOPHIE REQ #: [id number] NEDA: 10/12/21 11:[address]: Shaila Kramer DEPT: [facility] Cytology RECD BY: Eva Barajas ENTERED: 10/12/21 13:00 SP TYPE: PAPFT OTHR DR: Belinda Diaz Tissues: 1 - CX/ENDOCX FOR PAP SMEARS Procedures: PAP THIN PREP/[facility] Screening Comments: [id number]
[2021-10-13 14:53] LABS: Chlamydia Result Negative (Negative); GC Result Negative (Negative)
== END 2021-10-12 12:30 | disposition home or self-care (01) ==
LOC: LBN 12:29
PROVIDERS: PCP Family Medicine; Visit Provider Nurse Practitioner Family
DX: Z11.3 Encounter for screening for infections with a predominantly sexual mode of transmission (principal); Z12.4 Encounter for screening for malignant neoplasm of cervix
CPT/HCPCS: 87491; 87591; 88142

== ENCOUNTER 2022-09-12 08:53 | Outpatient (REF) | payer MEDICAID, SELFPAY ==
[2022-09-12 20:23] LABS: Abs Immature Grans 0.01 10^3/uL (0.0-0.06); Absolute Basophil Count 0.02 10^3/uL (0.0-0.2); Absolute Eosinophil Count 0.21 10^3/uL (0.0-0.7); Absolute Lymphocyte Count 1.85 10^3/uL (1.2-3.4); Absolute Monocyte Count 0.48 10^3/uL (0.1-0.8); Absolute Neutrophil Count 3.56 10^3/uL (1.2-6.7); Basophils % 0.3; Eosinophils % 3.4; HCT 38.9 % (36.0-46.0); Immature Grans % 0.2; Lymphocytes % 30.2; MCHC 33.4 % (32.0-36.0); MCV 87 fL (80-95); MPV 10.7 fL (8.0-11.0); Monocytes % 7.8; Neutrophils % 58.1; Platelet Count 240 10^3/uL (130-400); RBC 4.48 10^6/uL (3.93-5.22); RDW 12.4 % (11.7-14.6); RDW-SD 39.3 fL; WBC 6.13 10^3/uL (4.4-10.8)
[2022-09-12 20:33] LABS: TSH (W/Ref FT4) 0.85 uIU/mL (0.36-3.74)
[2022-09-14 10:54] LABS: HIV-1/2 Ag & Ab Screen Negative (Negative)
[2022-09-17 13:24] LABS: IgA 109 mg/dL (85-499); Interpretation (See Note); Tissue Transglutaminase IgA <1.2 U/mL (<4.0)
== END 2022-09-12 08:54 | disposition home or self-care (01) ==
LOC: NCHCN 08:53
PROVIDERS: PCP Family Medicine; Visit Provider Family Medicine
DX: R63.5 Abnormal weight gain (principal); R19.7 Diarrhea, unspecified; Z11.4 Encounter for screening for human immunodeficiency virus [HIV]; K12.0 Recurrent oral aphthae
CPT/HCPCS: 82784; 83516; 87389; 84443; 85025

== ENCOUNTER 2023-11-18 16:32 | Outpatient (REF) | payer OTHER, SELFPAY ==
[2023-11-20 13:32] LABS: Chlamydia Result Negative (Negative); GC Result Negative (Negative)
== END 2023-11-18 16:33 | disposition home or self-care (01) ==
LOC: LBN 16:32
PROVIDERS: PCP Family Medicine; Visit Provider Obstetrics & Gynecology
DX: Z11.3 Encounter for screening for infections with a predominantly sexual mode of transmission (principal)
CPT/HCPCS: 87491; 87591